=== PATIENT | male | born 1965 | race Caucasian/White ===

== ENCOUNTER 2023-06-11 17:28 | Inpatient (IN) | payer BC ==
[~2023-06-11] VITALS: Ht 172.7 cm; Wt 102.2 kg
[~2023-06-11 17:28] MED LIST: ALPR0.5T PO; AMLO1TAB21 PO; ATOR20TA PO; HYDR-4798 PO; RIVA20TA PO
[2023-06-11] MEDS: MORPHINE SULFATE 4 MG/ML SYR/VIAL IV ONE (18:00)
[2023-06-11 18:16] LABS: Basophils # (auto) 0.1 10 ^3/uL (0-0.2); Basophils % (auto) 0.7 % (0.0-2.0); Eosinophils # (auto) 0.2 10 ^3/uL (0-0.8); Eosinophils % (auto) 1.3 % (0.0-7.0); Hematocrit 45.7 % (41.0-53.0); Hemoglobin 15.5 g/dL (13.5-17.5); Lymphocytes # (auto) 0.8 10 ^3/uL (0.4-5.4); Lymphocytes % (auto) 5.5 % (10.0-50.0); Mean Corpuscular Hemoglobin 31.4 pg (28.0-32.0); Mean Corpuscular Volume 92.5 fL (80.0-100.0); Monocytes # (auto) 0.8 10 ^3/uL (0-1.3); Monocytes % (auto) 5.4 % (0.0-12.0); Neutrophils # (auto) 13.1 10 ^3/uL (1.6-8.6); Neutrophils % (auto) 87.1 % (37.0-80.0); Red Blood Cells 4.94 10^6/uL (4.5-5.90); Red Cell Distribution Width 12.8 % (11.8-14.3); White Blood Cell 15.1 10^3/uL (4.4-10.8)
[2023-06-11 18:31] LABS: Alanine Aminotransferase 29 U/L (7-40); Albumin 3.9 g/dL (3.2-4.8); Alkaline Phosphatase 67 U/L (46-116); Anion Gap 10 (5-15); Aspartate Aminotransferase 22 U/L (13-40); Bilirubin, Total 0.8 mg/dL (0.2-1.0); Blood Urea Nitrogen 18 mg/dL (9-23); Calcium 8.4 mg/dL (8.7-10.4); Carbon Dioxide 19 mmol/L (20-30); Chloride 109 mmol/L (98-107); Glucose 151 mg/dL (74-106); Lipase 26 U/L (12-53); Potassium 3.7 mmol/L (3.5-5.1); Sodium 138 mmol/L (136-145); Total Protein 6.3 g/dL (5.7-8.2)
[2023-06-11] MEDS ORDERED: DOCUSATE SOD 100 MG CAP PO PRN (20:00)
[2023-06-11] MEDS ORDERED: ONDANSETRON HCL 4 MG/2 ML VIAL IV PRN (20:00)
[2023-06-11] MEDS ORDERED: ACETAMINOPHEN 325 MG TAB PO PRN (20:00)
[2023-06-11] MEDS: cefTRIAXone 1GM/50ML D5W 50 ML IV ONE (20:00)
[2023-06-11] MEDS ORDERED: MORPHINE SULFATE INJ 2 MG/ml SYRG IV PRN ×3 (20:00→22:15)
[2023-06-11] MEDS ORDERED: hydrALAZINE HCL 20 MG/ML VL IV PRN (20:00)
[2023-06-11] MEDS: FLEET ENEMA(ADULT) 135 ML PR ONE (21:44)
[2023-06-11] MEDS: ONDANSETRON HCL 4 MG/2 ML VIAL IV ONE (22:00)
[2023-06-11] MEDS: PANTOPRAZOLE 40 MG/10 ML VIAL INJ IV ONE (22:00)
[2023-06-11] MEDS ORDERED: ALPRAZolam 0.5 MG TAB PO PRN (22:00)
[2023-06-11] MEDS ORDERED: NITROGLYCERIN 0.4 MG SL TAB SL PRN ×2 (22:00→22:15)
[2023-06-11] MEDS: SODIUM CHLORIDE 0.9% 500 ML IVB ONE (22:02)
[2023-06-11] MEDS: SODIUM CHLORIDE 0.9% 1,000 ML IV SCH (22:02)
[2023-06-11] MEDS: HYDROmorphone HCL 2 MG/ML VL/or syr IV PRN (23:41)
[2023-06-11 23:49] VITALS: PULSE 88; RESP 20; O2SAT 97
[2023-06-12] MEDS: ALPRAZolam 0.5 MG TAB PO PRN (00:56)
[2023-06-12 00:57] VITALS: PULSE 81; RESP 17; O2SAT 97
[2023-06-12 04:59] VITALS: BP 113/72; PULSE 77; RESP 18; TEMP 98.5; O2SAT 96
[2023-06-12 07:30] VITALS: BP 107/64; PULSE 72; PULSE 86; RESP 16; RESP 20; TEMP 97.7; O2SAT 98
[2023-06-12 08:00] VITALS: BP 107/64; PULSE 72; RESP 20; TEMP 97.7; O2SAT 94
[2023-06-12 08:57] LABS: Basophils # (auto) 0 10 ^3/uL (0-0.2); Basophils % (auto) 0.4 % (0.0-2.0); Eosinophils # (auto) 0.2 10 ^3/uL (0-0.8); Eosinophils % (auto) 1.8 % (0.0-7.0); Hematocrit 40.5 % (41.0-53.0); Hemoglobin 13.7 g/dL (13.5-17.5); Lymphocytes # (auto) 2.3 10 ^3/uL (0.4-5.4); Lymphocytes % (auto) 25.9 % (10.0-50.0); Mean Corpuscular Hemoglobin 31.5 pg (28.0-32.0); Mean Corpuscular Hgb Conc. 33.7 g/dL (32.0-36.0); Mean Corpuscular Volume 93.4 fL (80.0-100.0); Monocytes # (auto) 0.9 10 ^3/uL (0-1.3); Monocytes % (auto) 10.7 % (0.0-12.0); Neutrophils # (auto) 5.4 10 ^3/uL (1.6-8.6); Neutrophils % (auto) 61.2 % (37.0-80.0); Red Blood Cells 4.34 10^6/uL (4.5-5.90); Red Cell Distribution Width 13.1 % (11.8-14.3); White Blood Cell 8.8 10^3/uL (4.4-10.8)
[2023-06-12 09:12] LABS: Alanine Aminotransferase 21 U/L (7-40); Albumin 3.4 g/dL (3.2-4.8); Alkaline Phosphatase 53 U/L (46-116); Anion Gap 4 (5-15); Aspartate Aminotransferase 19 U/L (13-40); BUN/Creatinine Ratio 14.4 (10.0-20.0); Bilirubin, Total 0.9 mg/dL (0.2-1.0); Blood Urea Nitrogen 13 mg/dL (9-23); Calcium 8.3 mg/dL (8.5-10.1); Carbon Dioxide 25 mmol/L (20-30); Chloride 110 mmol/L (98-107); Glucose 107 mg/dL (74-106); Sodium 139 mmol/L (136-145); Total Protein 5.7 g/dL (5.7-8.2)
[2023-06-12 09:16] LABS: INR 1.19 (0.9-1.15); Partial Thromboplastin Time 28.2 SEC (24.5-34.5); Prothrombin Time 12.4 sec (9.3-11.8)
[2023-06-12] MEDS ORDERED: [UNRECOGNIZED DRUG - OTHER] PO SCH ×2 (10:00)
[2023-06-12] MEDS: PANTOPRAZOLE 40 MG/10 ML VIAL INJ IV SCH (10:17)
[2023-06-12] MEDS ORDERED: DOCU-265 PO (10:17)
[2023-06-12] MEDS ORDERED: DOCU-111 PO (10:17)
[2023-06-12] MEDS: cefTRIAXone 1GM/50ML D5W 50 ML IV SCH (10:17)
[2023-06-12] MEDS: HYDROcodone-ACET 5/325MG TAB PO ONE (11:46)
[2023-06-12 12:54] LABS: Amphetamine Screen, Urine Neg (NEGATIVE); Barbiturate Scree,Urine Neg (NEGATIVE); Benzodiazephine Screen, Urine Pos (NEGATIVE); Cannabinoid Screen, Urine Neg (NEGATIVE); Cocaine Screen, Urine Neg (NEGATIVE); Opiate Scree,Urine Pos (NEGATIVE); Phencyclidine Screen, Urine Neg (NEGATIVE); Urine Bacteria NONE SEEN /hpf (None Seen); Urine Blood Negative /uL (Negative); Urine Clarity Clear (Clear); Urine Color Yellow (Yellow); Urine Mucus FEW (None Seen); Urine Protein, UAD TRACE (Negative); Urine Specific Gravity 1.031 (1.001-1.035); Urine Urobilinogen Normal (Negative); Urine WBC 1 /hpf (0 - 3)
[2023-06-12 12:59] VITALS: BP 107/64; PULSE 72; RESP 20; TEMP 97.7; O2SAT 94
[2023-06-12 13:00] VITALS: BP 114/75; PULSE 68; RESP 20; TEMP 98.1; O2SAT 96
[2023-06-12] MEDS ORDERED: METR-344 PO (18:40)
== END 2023-06-12 14:42 | disposition home or self-care (01) | DRG 872 ==
LOC: EDBD 17:28 → ER 17:28 → WEST WING 21:58 → ER 21:58 → OVERFLOW 21:58 → WEST WING 23:50
PROVIDERS: ADMIT Internal Medicine; ATTEND Internal Medicine
DX: A41.9 Sepsis, unspecified organism (principal); K59.00 Constipation, unspecified; I10 Essential (primary) hypertension; F41.9 Anxiety disorder, unspecified; I65.23 Occlusion and stenosis of bilateral carotid arteries; E78.5 Hyperlipidemia, unspecified; R73.9 Hyperglycemia, unspecified; Z87.442 Personal history of urinary calculi; Z86.711 Personal history of pulmonary embolism; Z83.3 Family history of diabetes mellitus; Z86.718 Personal history of other venous thrombosis and embolism
CPT/HCPCS: 36415; 74176; 80053; 80307; 81001; 83036; 83690; 85025; 85610; 85730; 87040; 93005; C9113; G0378; J2405